=== PATIENT | female | born 1960 | race Caucasian/White ===

== ENCOUNTER 2024-02-04 12:16 | Inpatient (IN) | payer OTHER ==
[2024-02-04 13:24] VITALS: BMI 28.3
[2024-02-04] MEDS ORDERED: NICOTINE 21 MG/24 HOURS TOPICAL PATCH TD PRN (15:03)
[2024-02-04] MEDS ORDERED: LOPERAMIDE HCL 2 MG CAPSULE PO PRN (15:03)
[2024-02-04] MEDS ORDERED: NALOXONE HCL 0.4 MG/ML VIAL IM PRN (15:03)
[2024-02-04] MEDS ORDERED: IBUPROFEN 400 MG TABLET (FP) PO PRN (15:03)
[2024-02-04] MEDS ORDERED: POLYETHYLENE GLYCOL (HEALTHYLAX) 3350 17 GM PACKET PO PRN (15:03)
[2024-02-04] MEDS ORDERED: IBUPROFEN 600 MG TABLET (FP) PO PRN (15:03)
[2024-02-04] MEDS ORDERED: ACETAMINOPHEN 325 MG TABLET (FP) PO PRN (15:03)
[2024-02-04] MEDS ORDERED: NALOXONE (NARCAN) HCL 4 MG/0.1 ML SPRAY NS PRN (15:03)
[2024-02-04] MEDS ORDERED: DICYCLOMINE HCL 10 MG CAPSULE PO PRN (15:03)
[2024-02-04] MEDS ORDERED: MAGNESIUM HYDROX 2400MG/30ML ORAL SUSPENSION 30 ML CUP PO PRN (15:03)
[2024-02-04] MEDS ORDERED: NICOTINE POLACRILEX 4 MG GUM BUC PRN (15:03)
[2024-02-04] MEDS ORDERED: guaiFENesin 600 MG TABLET.ER (FP) PO PRN (15:03)
[2024-02-04] MEDS ORDERED: BENZONATATE 200 MG CAPSULE PO PRN (15:03)
[2024-02-04] MEDS ORDERED: BENZOCAINE/MENTHOL (CHLORASEPTIC ) LOZENGE MM PRN (15:03)
[2024-02-04] MEDS ORDERED: LORazepam 1 MG TABLET PO PRN (15:03)
[2024-02-04] MEDS ORDERED: LORazepam 2 MG TABLET ONE (15:24)
[2024-02-04] MEDS: LORazepam 2 MG TABLET PO ONE (15:26)
[2024-02-04] MEDS: metFORMIN HCL 500 MG TABLET (FP) PO SCH (17:42)
[2024-02-04] MEDS: CEPHALEXIN MONOHYDRATE 500 MG CAPSULE (UD) PO SCH (17:43)
[2024-02-04] MEDS: INSULIN ASPART SLIDING SCALE (NOVOLOG) 1 VIAL SQ SCH (17:45)
[2024-02-04] MEDS: LORazepam 2 MG TABLET PO SCH (18:08)
[2024-02-04] MEDS: levETIRAcetam 250 MG TABLET PO SCH (22:59)
[2024-02-04] MEDS: MELATONIN 5 MG TABLETS PO SCH (22:59)
[2024-02-04] MEDS: THIAMINE 100 MG TABLET PO SCH (22:59)
[2024-02-04] MEDS: BUDESONIDE/FORMETEROL FUMARATE 160/4.5 mcg INHALER IH SCH (23:01)
[2024-02-05] MEDS: BICTEGRAV/EMTRICIT/TENOFOV (BIKTARVY) 50-200-25 MG TABLET PO SCH (07:27)
[2024-02-05] MEDS: ALBUTEROL SO4 HFA INHALER IH PRN (10:05)
[2024-02-05] MEDS: PRENATAL VITAMINS W/ FOLIC ACID TABLET (FP) PO SCH (10:39)
[2024-02-05] MEDS: PANTOPRAZOLE 40 MG TABLET PO SCH (10:41)
[2024-02-05] MEDS: MAG HYDROX/AL HYDROX/SIMETH 30 ML UNIT-DOSE CUP PO PRN (17:15)
[2024-02-05] MEDS: CEPHALEXIN MONOHYDRATE 500 MG CAPSULE (UD) PO SCH (18:30)
[2024-02-05] MEDS: traZODone HCL 50 MG TABLET (FP) PO SCH (23:09)
[2024-02-06] MEDS: LORazepam 1 MG TABLET PO SCH (05:39)
[2024-02-06] MEDS: FLUoxetine HCL 20 MG CAPSULE PO SCH (09:51)
[2024-02-06] MEDS: ONDANSETRON *ODT* 4 MG TABLET SL PRN (09:54)
[2024-02-06] MEDS: METHOCARBAMOL 500 MG TABLET PO PRN (22:20)
[2024-02-07] MEDS: LORazepam 0.5 MG TABLET PO SCH (06:12)
[2024-02-07] MEDS: BISMUTH SUBSALICYLATE 524 MG/30 ML PO PRN (10:41)
[2024-02-07] MEDS: LORazepam 0.5 MG TABLET PO PRN (22:28)
[2024-02-08] MEDS: LORazepam 0.5 MG TABLET PO ONE (05:46)
[2024-02-08] MEDS: chlordiazePOXIDE HCL 10 MG CAPSULE PO SCH (09:45)
[2024-02-09] MEDS: chlordiazePOXIDE HCL 10 MG CAPSULE PO ONE (05:32)
[2024-02-09 06:30] VITALS: TEMP 97.1
[2024-02-09 08:54] VITALS: RESP 18
[2024-02-09 09:47] VITALS: BP 116/86; PULSE 83
[2024-02-11] MEDS ORDERED: ERGOCALCIFEROL (VIT D2) 50,000 UNIT (1.25 MG) CAPSULE PO SCH (10:00)
== END 2024-02-10 07:45 | disposition short-term general hospital (02) | DRG 775 ==
LOC: YASAS 12:16 → Y6N 15:06
PROVIDERS: ADMIT Surgery; ATTEND Surgery
PROC: HZ2ZZZZ Detoxification Services for Substance Abuse Treatment (ICD-10-PCS; principal; 2024-02-04)
DX: F10.230 Alcohol dependence with withdrawal, uncomplicated (principal); F10.24 Alcohol dependence with alcohol-induced mood disorder; F17.210 Nicotine dependence, cigarettes, uncomplicated; F31.9 Bipolar disorder, unspecified; Z21 Asymptomatic human immunodeficiency virus [HIV] infection status; R56.1 Post traumatic seizures; J44.1 Chronic obstructive pulmonary disease with (acute) exacerbation; N30.00 Acute cystitis without hematuria; E11.9 Type 2 diabetes mellitus without complications; Z79.84 Long term (current) use of oral hypoglycemic drugs; M54.50 Low back pain, unspecified; G89.29 Other chronic pain; R32 Unspecified urinary incontinence; R26.2 Difficulty in walking, not elsewhere classified; R29.6 Repeated falls; Z99.89 Dependence on other enabling machines and devices; M96.1 Postlaminectomy syndrome, not elsewhere classified
CPT/HCPCS: 80305; 82962; 93005; 93010; Q0162

== ENCOUNTER 2024-02-07 15:30 | Emergency (ER) | payer OTHER ==
[2024-02-07 15:40] VITALS: RESP 16; TEMP 98.4; BMI 28.3
[2024-02-07 16:49] LABS: BASO % 0.7 % (0-2.0); EOS % 4.1 % (0-4.5); HEMATOCRIT 40.4 % (32.4-45.2); HEMOGLOBIN 13.3 GM/dL (10.7-15.3); LYMPH % 37.3 % (8-40); MCH 30.5 pg (25.7-33.7); MCHC 32.8 g/dl (32.0-36.0); MEAN PLT VOLUME 7.6 fl (7.5-11.1); MONO % 6.7 % (3.8-10.2); NEUT % 51.2 % (42.8-82.8); PLATELET COUNT 315 10^3/uL (134-434); RBC 4.35 M/mm3 (3.60-5.2); RDW 16.7 % (11.6-15.6); WHITE BLOOD COUNT 4.8 K/mm3 (4.0-10.0)
[2024-02-07] MEDS ORDERED: ALBUTEROL SO4 2.5/IPRATROPIUM 0.5 INH SOL 3 ML VIAL.NEB. NEB ONE (16:49)
[2024-02-07] MEDS ORDERED: ACETAMINOPHEN INJECTION 100 ML ONE (16:49)
[2024-02-07] MEDS: ACETAMINOPHEN 1000 MG/100 ML BAG IVPB ONE (16:56)
[2024-02-07] MEDS: ALBUTEROL SO4 2.5/IPRATROPIUM 0.5 INH SOL 3 ML VIAL.NEB. NEB SCH (16:56)
[2024-02-07] MEDS: LACTATED RINGERS SOLUTION 1000 ML INFUS.BAG IV ONE (16:56)
[2024-02-07 17:00] LABS: VENOUS BASE EXCESS -3.9 mmol/L (-2-2); VENOUS O2 SATURATION 43.7 % (70-80); VENOUS PCO2 41.8 mmHg (38-52); VENOUS PH 7.335 (7.310-7.410)
[2024-02-07 17:07] LABS: INR 0.87 (0.83-1.09)
[2024-02-07 17:23] LABS: POTASSIUM 3.8 mmol/L (3.5-5.1)
[2024-02-07 17:26] LABS: ALBUMIN 3.5 g/dl (3.4-5.0); BLOOD UREA NITROGEN 8.9 mg/dL (7-18); CALCIUM 9.1 mg/dL (8.5-10.1); MAGNESIUM 1.9 mg/dL (1.8-2.4)
[2024-02-07 17:31] LABS: BILIRUBIN,TOTAL 0.3 mg/dL (0.2-1); TOT PROT 7.2 g/dl (6.4-8.2)
[2024-02-07 19:23] VITALS: BP 112/72; PULSE 75
== END 2024-02-07 19:26 | disposition home or self-care (01) ==
LOC: JER 15:30
PROC: 3E033NZ Introduction of Analgesics, Hypnotics, Sedatives into Peripheral Vein, Percutaneous Approach (ICD-10-PCS; principal; 2024-02-07)
PROC: 3E0F7GC Introduction of Other Therapeutic Substance into Respiratory Tract, Via Natural or Artificial Opening (ICD-10-PCS; 2024-02-07)
DX: J44.1 Chronic obstructive pulmonary disease with (acute) exacerbation (principal); R19.7 Diarrhea, unspecified; R07.2 Precordial pain; R10.13 Epigastric pain; R53.1 Weakness; F17.210 Nicotine dependence, cigarettes, uncomplicated; Z20.822 Contact with and (suspected) exposure to COVID-19
CPT/HCPCS: 0241U-QW; 36415; 71045-TC-FY; 71046-TC-FY; 80053; 82140; 82550; 82803; 83690; 83735; 84100; 84484; 85025; 85610; 85730; 86850; 86900; 86901; 99284-25; J0131

== ENCOUNTER 2024-02-09 10:12 | Inpatient (IN) | payer OTHER ==
[2024-02-09] MEDS ORDERED: ALBUTEROL SO4 2.5/IPRATROPIUM 0.5 INH SOL 3 ML VIAL.NEB. NEB ONE (10:42)
[2024-02-09] MEDS ORDERED: methylPREDNISolone NA SUCC 125 MG/2 ML VIAL ONE (10:43)
[2024-02-09] MEDS: ALBUTEROL SO4 2.5/IPRATROPIUM 0.5 INH SOL 3 ML VIAL.NEB. NEB SCH ×2 (10:45→20:41)
[2024-02-09] MEDS: methylPREDNISolone NA SUCC 125 MG/2 ML VIAL IVPB ONE (11:43)
[2024-02-09] MEDS: LACTATED RINGERS SOLUTION 1000 ML INFUS.BAG IV ONE ×2 (11:44→14:13)
[2024-02-09 11:47] LABS: BASO % 0.6 % (0-2.0); EOS % 1.6 % (0-4.5); HEMATOCRIT 43.6 % (32.4-45.2); HEMOGLOBIN 14.2 GM/dL (10.7-15.3); LYMPH % 54.3 % (8-40); MCH 30.6 pg (25.7-33.7); MCHC 32.7 g/dl (32.0-36.0); MEAN CELL VOLUME 93.6 fl (80-96); MEAN PLT VOLUME 7.5 fl (7.5-11.1); MONO % 6.4 % (3.8-10.2); NEUT % 37.1 % (42.8-82.8); PLATELET COUNT 264 10^3/uL (134-434); RBC 4.66 M/mm3 (3.60-5.2); RDW 16.6 % (11.6-15.6); WHITE BLOOD COUNT 7.3 K/mm3 (4.0-10.0)
[2024-02-09 11:54] LABS: INR 0.9 (0.83-1.09); PROTHROMBIN TIME (PATIENT) 10.4 SEC (9.7-13.0)
[2024-02-09 12:14] LABS: POTASSIUM 3.5 mmol/L (3.5-5.1)
[2024-02-09 12:16] LABS: ALBUMIN 3.9 g/dl (3.4-5.0); BLOOD UREA NITROGEN 6.1 mg/dL (7-18); CALCIUM 9.6 mg/dL (8.5-10.1)
[2024-02-09 12:21] LABS: BILIRUBIN,TOTAL 0.3 mg/dL (0.2-1); CREATININE 0.9 mg/dL (0.55-1.3); TOT PROT 7.5 g/dl (6.4-8.2)
[2024-02-09 13:00] LABS: EPI CELLS 17 /uL (0-25.1); HYALINE CASTS 1 /uL (0-3.1); PH,URINE 6.5 (5.0-8.0); URINE APPEARANCE CLEAR; URINE BACTERIA 137 /uL (0-1359); URINE BILIRUBIN NEGATIVE (NEGATIVE); URINE COLOR YELLOW; URINE GLUCOSE (UA) NEGATIVE (NEGATIVE); URINE KETONE NEGATIVE (NEGATIVE); URINE LEUK ESTERASE 1+ (NEGATIVE); URINE NITRITE NEGATIVE (NEGATIVE); URINE PROTEIN NEGATIVE (NEGATIVE); URINE UROBILINOGEN 0.2 mg/dL (0.2-1.0); URINE WBC 32 /uL (0-25.8)
[2024-02-09 13:09] LABS: URINE RBC 18 /uL (0-23.9)
[2024-02-09] MEDS ORDERED: CEFTRIAXONE 1 GM/50 ML BAG ONE (13:19)
[2024-02-09] MEDS: LORazepam 2 MG/ML SDV VIAL IVPUSH ONE (14:13)
[2024-02-09] MEDS ORDERED: ALBUTEROL SO4 2.5/IPRATROPIUM 0.5 INH SOL 3 ML VIAL.NEB. NEB PRN (16:51)
[2024-02-09] MEDS ORDERED: ALBUTEROL SO4 2.5/IPRATROPIUM 0.5 INH SOL 3 ML VIAL.NEB. NEB SCH (18:00)
[2024-02-09] MEDS: methylPREDNISolone NA SUCC 40 MG/1 ML VIAL IVPUSH SCH (19:29)
[2024-02-09] MEDS: SODIUM CHLORIDE 1,000 ML IV SCH (19:30)
[2024-02-09] MEDS: HEPARIN NA (PORCINE) 5,000 UNITS/ML 1ML VIAL SQ SCH (21:27)
[2024-02-09] MEDS: LORazepam 1 MG TABLET PO PRN (21:28)
[2024-02-09] MEDS: levETIRAcetam 500 MG TABLET (FP) PO SCH (21:30)
[2024-02-09] MEDS: traZODone HCL 50 MG TABLET (FP) PO SCH (21:30)
[2024-02-09] MEDS: INSULIN ASPART SLIDING SCALE (NOVOLOG) 1 VIAL SQ SCH (21:38)
[2024-02-09] MEDS ORDERED: BUDESONIDE/FORMETEROL FUMARATE 160/4.5 mcg INHALER IH SCH (22:00)
[2024-02-09] MEDS: BUDESONIDE/FORMETEROL FUMARATE 160/4.5 mcg INHALER IH SCH (23:03)
[2024-02-10 08:11] LABS: BASO % 0.1 % (0-2.0); HEMOGLOBIN 11.6 GM/dL (10.7-15.3); LYMPH % 10.7 % (8-40); MCH 30.6 pg (25.7-33.7); MCHC 33.1 g/dl (32.0-36.0); MEAN CELL VOLUME 92.3 fl (80-96); MEAN PLT VOLUME 7.8 fl (7.5-11.1); MONO % 2.4 % (3.8-10.2); NEUT % 86.8 % (42.8-82.8); PLATELET COUNT 250 10^3/uL (134-434); RBC 3.79 M/mm3 (3.60-5.2); RDW 16.3 % (11.6-15.6)
[2024-02-10] MEDS ORDERED: ALBUTEROL SO4 0.5 % INH SOLN 2.5 MG/0.5 ML VIAL.NEB. NEB PRN (08:27)
[2024-02-10 08:30] LABS: POTASSIUM 3.8 mmol/L (3.5-5.1)
[2024-02-10 08:36] LABS: CALCIUM 8.6 mg/dL (8.5-10.1)
[2024-02-10 08:37] LABS: BLOOD UREA NITROGEN 12.4 mg/dL (7-18); MAGNESIUM 1.6 mg/dL (1.8-2.4)
[2024-02-10 08:40] LABS: CREATININE 0.8 mg/dL (0.55-1.3); PHOSPHOROUS 3.2 mg/dL (2.5-4.9)
[2024-02-10 08:41] LABS: BILIRUBIN,TOTAL 0.2 mg/dL (0.2-1); TOT PROT 6.2 g/dl (6.4-8.2)
[2024-02-10 10:29] LABS: ARTERIAL BLOOD GAS BASE EXCESS 0.5 mmol/L (-2-2); ARTERIAL BLOOD GAS PO2 82.2 mmHg (80-100); ARTERIAL BLOOD GAS pH 7.395 (7.350-7.450)
[2024-02-10 10:34] LABS: ALLENS TEST POSITIVE
[2024-02-10] MEDS: FOLIC ACID 1 MG TABLET (FP) PO SCH (10:49)
[2024-02-10] MEDS: FLUoxetine HCL 20 MG CAPSULE PO SCH (10:49)
[2024-02-10] MEDS: CEFTRIAXONE 1 GM in DEXTROSE 5%-WATER - 50 ML IVPB SCH (10:49)
[2024-02-10] MEDS: THIAMINE 100 MG TABLET PO SCH (10:49)
[2024-02-10] MEDS: BICTEGRAV/EMTRICIT/TENOFOV (BIKTARVY) 50-200-25 MG TABLET PO SCH (10:49)
[2024-02-10] MEDS: PANTOPRAZOLE 40 MG TABLET PO SCH (10:50)
[2024-02-10] MEDS: MAGNESIUM 2GM/50ML STERILE WATER IVPB IVPB ONE (13:17)
[2024-02-10 18:30] LABS: COCAINE, UR NEGATIVE (NEGATIVE); METHADONE, UR NEGATIVE (NEGATIVE); OPIATES, URI NEGATIVE (NEGATIVE); PHENCYCLIDINE,URINE NEGATIVE (NEGATIVE)
[2024-02-10 18:34] LABS: URINE AMPHETAMINES NEGATIVE (NEGATIVE); URINE BARBITURATES POSITIVE (NEGATIVE); URINE BENZODIAZEPINES POSITIVE (NEGATIVE)
[2024-02-11] MEDS: hydrOXYzine PAMOATE 25 MG CAPSULE (FP) PO ONE (00:56)
[2024-02-11] MEDS: THIAMINE HCL 200 MG/2 ML VIAL IVPB SCH (08:47)
[2024-02-11] MEDS: predniSONE 20 MG TABLET (UD) PO SCH (10:10)
[2024-02-11 10:18] LABS: HEMATOCRIT 44.8 % (32.4-45.2); HEMOGLOBIN 15.1 GM/dL (10.7-15.3); MCH 31.1 pg (25.7-33.7); MCHC 33.6 g/dl (32.0-36.0); MEAN CELL VOLUME 92.4 fl (80-96); MEAN PLT VOLUME 8.1 fl (7.5-11.1); PLATELET COUNT 249 10^3/uL (134-434); RBC 4.85 M/mm3 (3.60-5.2); RDW 16.7 % (11.6-15.6); WHITE BLOOD COUNT 5.4 K/mm3 (4.0-10.0)
[2024-02-11 10:31] LABS: POTASSIUM 3.6 mmol/L (3.5-5.1)
[2024-02-11 10:42] LABS: ALBUMIN 3.9 g/dl (3.4-5.0); BILIRUBIN,TOTAL 0.6 mg/dL (0.2-1); PHOSPHOROUS 2.7 mg/dL (2.5-4.9); TOT PROT 8.1 g/dl (6.4-8.2)
[2024-02-11] MEDS: MEROPENEM 1 GM in DEXTROSE 5%-WATER 100 ML IVPB ONE (12:04)
[2024-02-11] MEDS: traZODone HCL 50 MG TABLET (FP) PO SCH (23:12)
[2024-02-12 10:32] LABS: HEMATOCRIT 37.3 % (32.4-45.2); HEMOGLOBIN 12.4 GM/dL (10.7-15.3); MCH 30.7 pg (25.7-33.7); MCHC 33.3 g/dl (32.0-36.0); MEAN PLT VOLUME 8.1 fl (7.5-11.1); PLATELET COUNT 242 10^3/uL (134-434); RBC 4.05 M/mm3 (3.60-5.2); RDW 16.3 % (11.6-15.6); WHITE BLOOD COUNT 5.6 K/mm3 (4.0-10.0)
[2024-02-12] MEDS: NITROFURANTOIN MONOHYD/M-CRYST 100 MG CAPSULE PO SCH (10:36)
[2024-02-12 10:49] LABS: POTASSIUM 3.6 mmol/L (3.5-5.1)
[2024-02-12 10:53] LABS: ALBUMIN 3.2 g/dl (3.4-5.0); BLOOD UREA NITROGEN 9.5 mg/dL (7-18); CALCIUM 8.9 mg/dL (8.5-10.1)
[2024-02-12 10:57] LABS: BILIRUBIN,TOTAL 0.4 mg/dL (0.2-1); CREATININE 0.9 mg/dL (0.55-1.3); PHOSPHOROUS 3.5 mg/dL (2.5-4.9); TOT PROT 6.6 g/dl (6.4-8.2)
[2024-02-12 13:58] VITALS: BMI 30.2
[2024-02-12] MEDS: methylPREDNISolone NA SUCC 40 MG/1 ML VIAL IVPUSH SCH (21:16)
[2024-02-13 09:13] LABS: HEMATOCRIT 35.2 % (32.4-45.2); HEMOGLOBIN 11.8 GM/dL (10.7-15.3); MCH 30.8 pg (25.7-33.7); MCHC 33.6 g/dl (32.0-36.0); MEAN CELL VOLUME 91.8 fl (80-96); MEAN PLT VOLUME 7.7 fl (7.5-11.1); PLATELET COUNT 271 10^3/uL (134-434); RBC 3.84 M/mm3 (3.60-5.2); RDW 15.9 % (11.6-15.6); WHITE BLOOD COUNT 8.4 K/mm3 (4.0-10.0)
[2024-02-13 09:36] LABS: POTASSIUM 3.6 mmol/L (3.5-5.1)
[2024-02-13 09:46] LABS: ALBUMIN 3.2 g/dl (3.4-5.0); BLOOD UREA NITROGEN 14.4 mg/dL (7-18); CALCIUM 9.3 mg/dL (8.5-10.1); MAGNESIUM 2.1 mg/dL (1.8-2.4)
[2024-02-13] MEDS: MULTIVITAMINS (DAILY MVI) TABLET (FP) PO SCH (09:46)
[2024-02-13 09:48] LABS: PHOSPHOROUS 2.7 mg/dL (2.5-4.9)
[2024-02-13 09:50] LABS: BILIRUBIN,TOTAL 0.2 mg/dL (0.2-1); TOT PROT 6.8 g/dl (6.4-8.2)
[2024-02-13] MEDS: THIAMINE HCL 200 MG/2 ML VIAL IVPB SCH (11:26)
[2024-02-14 09:18] LABS: HEMATOCRIT 38.4 % (32.4-45.2); HEMOGLOBIN 12.9 GM/dL (10.7-15.3); MCH 30.8 pg (25.7-33.7); MCHC 33.6 g/dl (32.0-36.0); MEAN CELL VOLUME 91.7 fl (80-96); MEAN PLT VOLUME 7.9 fl (7.5-11.1); PLATELET COUNT 294 10^3/uL (134-434); RBC 4.19 M/mm3 (3.60-5.2); RDW 16.4 % (11.6-15.6); WHITE BLOOD COUNT 9.5 K/mm3 (4.0-10.0)
[2024-02-14 09:38] LABS: POTASSIUM 3.8 mmol/L (3.5-5.1)
[2024-02-14 09:49] LABS: ALBUMIN 3.3 g/dl (3.4-5.0); BLOOD UREA NITROGEN 15.3 mg/dL (7-18); CALCIUM 9.2 mg/dL (8.5-10.1)
[2024-02-14 09:52] LABS: CREATININE 0.9 mg/dL (0.55-1.3); PHOSPHOROUS 3.9 mg/dL (2.5-4.9)
[2024-02-14 09:53] LABS: BILIRUBIN,TOTAL 0.2 mg/dL (0.2-1)
[2024-02-14 22:13] LABS: HIV INTERPRETATION PRESUMPTIVE POSITIVE (NEGATIVE)
[2024-02-15] MEDS: methylPREDNISolone NA SUCC 40 MG/1 ML VIAL IVPUSH SCH ×2 (10:04→15:54)
[2024-02-15 11:24] LABS: POTASSIUM 3.6 mmol/L (3.5-5.1)
[2024-02-15 11:37] LABS: CALCIUM 9.6 mg/dL (8.5-10.1)
[2024-02-15 11:38] LABS: ALBUMIN 3.8 g/dl (3.4-5.0); BLOOD UREA NITROGEN 15.4 mg/dL (7-18); MAGNESIUM 2.1 mg/dL (1.8-2.4)
[2024-02-15 11:41] LABS: PHOSPHOROUS 3.4 mg/dL (2.5-4.9)
[2024-02-15 11:42] LABS: BILIRUBIN,TOTAL 0.4 mg/dL (0.2-1); TOT PROT 7.9 g/dl (6.4-8.2)
[2024-02-15 11:46] LABS: HEMATOCRIT 44.4 % (32.4-45.2); HEMOGLOBIN 14.6 GM/dL (10.7-15.3); MCH 30.7 pg (25.7-33.7); MCHC 32.8 g/dl (32.0-36.0); MEAN CELL VOLUME 93.7 fl (80-96); RBC 4.74 M/mm3 (3.60-5.2); RDW 16.3 % (11.6-15.6)
[2024-02-15 11:47] LABS: WHITE BLOOD COUNT 10.4 K/mm3 (4.0-10.0)
[2024-02-16 08:37] LABS: HEMOGLOBIN 12.8 GM/dL (10.7-15.3); MCH 30.4 pg (25.7-33.7); MCHC 32.7 g/dl (32.0-36.0); MEAN CELL VOLUME 93.1 fl (80-96); MEAN PLT VOLUME 7.9 fl (7.5-11.1); PLATELET COUNT 296 10^3/uL (134-434); RBC 4.19 M/mm3 (3.60-5.2); WHITE BLOOD COUNT 10.7 K/mm3 (4.0-10.0)
[2024-02-16 09:05] LABS: POTASSIUM 4.5 mmol/L (3.5-5.1)
[2024-02-16 09:07] LABS: ALBUMIN 3.3 g/dl (3.4-5.0); CALCIUM 9.5 mg/dL (8.5-10.1)
[2024-02-16 09:10] LABS: CREATININE 0.9 mg/dL (0.55-1.3)
[2024-02-16 09:11] LABS: PHOSPHOROUS 3.6 mg/dL (2.5-4.9)
[2024-02-16 09:12] LABS: BILIRUBIN,TOTAL 0.3 mg/dL (0.2-1); TOT PROT 7.1 g/dl (6.4-8.2)
[2024-02-16] MEDS ORDERED: predniSONE 20 MG TABLET (UD) PO SCH (10:00)
[2024-02-16] MEDS: PENICILLIN G BENZATHINE 2,400,000 UNIT/4 ML PFS IM ONE (14:34)
[2024-02-16] MEDS: methylPREDNISolone NA SUCC 40 MG/1 ML VIAL IVPUSH SCH (21:49)
[2024-02-17] MEDS: SOLIFENACIN SUCCINATE 5 MG TAB PO SCH (09:28)
[2024-02-17 10:26] LABS: HEMATOCRIT 40.3 % (32.4-45.2); HEMOGLOBIN 13.3 GM/dL (10.7-15.3); MCH 30.3 pg (25.7-33.7); MEAN PLT VOLUME 8.3 fl (7.5-11.1); PLATELET COUNT 265 10^3/uL (134-434); RBC 4.38 M/mm3 (3.60-5.2); RDW 16.1 % (11.6-15.6); WHITE BLOOD COUNT 14.8 K/mm3 (4.0-10.0)
[2024-02-17 10:52] LABS: POTASSIUM 4.1 mmol/L (3.5-5.1)
[2024-02-17 10:57] LABS: CALCIUM 10.2 mg/dL (8.5-10.1)
[2024-02-17 10:58] LABS: ALBUMIN 3.8 g/dl (3.4-5.0); BLOOD UREA NITROGEN 19.5 mg/dL (7-18); MAGNESIUM 2.3 mg/dL (1.8-2.4)
[2024-02-17 11:01] LABS: CREATININE 0.9 mg/dL (0.55-1.3)
[2024-02-17 11:02] LABS: BILIRUBIN,TOTAL 0.6 mg/dL (0.2-1); PHOSPHOROUS 4.2 mg/dL (2.5-4.9)
[2024-02-17 11:03] LABS: TOT PROT 7.9 g/dl (6.4-8.2)
[2024-02-17] MEDS: POLYETHYLENE GLYCOL (HEALTHYLAX) 3350 17 GM PACKET PO SCH (11:59)
[2024-02-18] MEDS: THIAMINE 100 MG TABLET PO SCH (09:52)
[2024-02-18] MEDS: guaiFENesin/D-METHORPHAN HB 10 ML UNIT-DOSE CUPS PO PRN (21:20)
[2024-02-19 08:46] LABS: HEMATOCRIT 37.5 % (32.4-45.2); HEMOGLOBIN 12.4 GM/dL (10.7-15.3); MCH 30.2 pg (25.7-33.7); MCHC 33.1 g/dl (32.0-36.0); MEAN CELL VOLUME 91.2 fl (80-96); MEAN PLT VOLUME 8.1 fl (7.5-11.1); PLATELET COUNT 313 10^3/uL (134-434); RBC 4.12 M/mm3 (3.60-5.2); RDW 16.4 % (11.6-15.6); WHITE BLOOD COUNT 11.1 K/mm3 (4.0-10.0)
[2024-02-19 09:07] LABS: POTASSIUM 3.6 mmol/L (3.5-5.1)
[2024-02-19 09:18] LABS: CALCIUM 8.9 mg/dL (8.5-10.1)
[2024-02-19 09:20] LABS: BILIRUBIN,TOTAL 0.3 mg/dL (0.2-1); TOT PROT 6.6 g/dl (6.4-8.2)
[2024-02-19 09:22] LABS: CREATININE 0.9 mg/dL (0.55-1.3)
[2024-02-19 10:23] LABS: ANISOCYTOSIS 0; MACROCYTOSIS 0
[2024-02-19 10:24] LABS: PLATELET ESTIMATE ADEQUATE
[2024-02-19] MEDS: predniSONE 20 MG TABLET (UD) PO SCH (10:26)
[2024-02-20] MEDS: SENNOSIDES 8.8 MG/5 ML SYRUP PO ONE (15:03)
[2024-02-22 03:40] VITALS: RESP 18
[2024-02-22 08:20] VITALS: BP 115/77; PULSE 72; TEMP 97.8
== END 2024-02-22 09:50 | DRG 140 ==
LOC: JER 10:12 → JERBED 14:30 → J6S 17:49 → OBSVTOIN 02-10 10:18 → J6S 02-11 09:36
PROVIDERS: ADMIT Internal Medicine; ATTEND Internal Medicine
DX: J44.1 Chronic obstructive pulmonary disease with (acute) exacerbation (principal); G20.A1 Parkinson's disease without dyskinesia, without mention of fluctuations; K21.9 Gastro-esophageal reflux disease without esophagitis; E51.2 Wernicke's encephalopathy; F31.9 Bipolar disorder, unspecified; E11.9 Type 2 diabetes mellitus without complications; F10.230 Alcohol dependence with withdrawal, uncomplicated; Z87.820 Personal history of traumatic brain injury; N39.0 Urinary tract infection, site not specified; J98.11 Atelectasis; G40.909 Epilepsy, unspecified, not intractable, without status epilepticus; Z21 Asymptomatic human immunodeficiency virus [HIV] infection status; A53.9 Syphilis, unspecified; B96.20 Unspecified Escherichia coli [E. coli] as the cause of diseases classified elsewhere
CPT/HCPCS: 0241U-QW; 36415; 36600; 70450-TC; 70551-TC; 71045-TC-FY; 80053; 80307; 81003; 82140; 82607; 82746; 82803; 82962; 83036; 83735; 84100; 84443; 84484; 85025; 85027; 85610; 85730; 86359; 86360; 86593; 86704; 86780; 86803; 87086; 87186; 87350; 87389; 87517; 93005; 93010; 94640; 94761; 97116-GP; 97162-GP; 99285-25; G0378; J1644

== ENCOUNTER 2024-12-03 16:24 | Inpatient (IN) | payer OTHER ==
[2024-12-03 17:40] VITALS: BMI 27.6
[2024-12-03] MEDS ORDERED: MAGNESIUM HYDROX 2400MG/30ML ORAL SUSPENSION 30 ML CUP PO PRN (19:26)
[2024-12-03] MEDS ORDERED: NALOXONE (NARCAN) HCL 4 MG/0.1 ML SPRAY NS PRN (19:26)
[2024-12-03] MEDS ORDERED: BENZONATATE 200 MG CAPSULE PO PRN (19:26)
[2024-12-03] MEDS ORDERED: guaiFENesin 600 MG TABLET.ER (FP) PO PRN (19:26)
[2024-12-03] MEDS ORDERED: IBUPROFEN 400 MG TABLET (FP) PO PRN (19:26)
[2024-12-03] MEDS ORDERED: MAG HYDROX/AL HYDROX/SIMETH 30 ML UNIT-DOSE CUP PO PRN (19:26)
[2024-12-03] MEDS ORDERED: POLYETHYLENE GLYCOL (HEALTHYLAX) 3350 17 GM PACKET PO PRN (19:26)
[2024-12-03] MEDS ORDERED: BENZOCAINE/MENTHOL (CHLORASEPTIC ) LOZENGE MM PRN (19:26)
[2024-12-03] MEDS ORDERED: LOPERAMIDE HCL 2 MG CAPSULE PO PRN (19:26)
[2024-12-03] MEDS ORDERED: NICOTINE POLACRILEX 2 MG LOZENGE BC PRN (19:26)
[2024-12-03] MEDS ORDERED: levETIRAcetam 500 MG TABLET (FP) PO ONE ×2 (22:11→22:16)
[2024-12-03] MEDS ORDERED: MELATONIN 5 MG TABLETS ONE (22:11)
[2024-12-03] MEDS ORDERED: IBUPROFEN 600 MG TABLET (FP) PO ONE (22:12)
[2024-12-03] MEDS: IBUPROFEN 600 MG TABLET (FP) PO PRN (22:13)
[2024-12-03] MEDS: THIAMINE 100 MG TABLET PO SCH (22:13)
[2024-12-03] MEDS: MELATONIN 5 MG TABLETS PO SCH (22:13)
[2024-12-03] MEDS ORDERED: guaiFENesin/D-METHORPHAN HB 10 ML UNIT-DOSE CUPS PO PRN (22:14)
[2024-12-03] MEDS ORDERED: ALBUTEROL SO4 HFA INHALER IH PRN (22:14)
[2024-12-03] MEDS: levETIRAcetam 500 MG TABLET (FP) PO SCH (22:17)
[2024-12-03] MEDS: BUDESONIDE/FORMETEROL FUMARATE 160/4.5 mcg INHALER IH SCH (22:59)
[2024-12-03] MEDS: GABAPENTIN 300 MG CAPSULE PO SCH (23:00)
[2024-12-04] MEDS: BICTEGRAV/EMTRICIT/TENOFOV (BIKTARVY) 50-200-25 MG TABLET PO SCH (07:46)
[2024-12-04] MEDS: FOLIC ACID 1 MG TABLET (FP) PO SCH (11:00)
[2024-12-04] MEDS: PRENATAL VITAMINS W/ FOLIC ACID TABLET (FP) PO SCH (11:00)
[2024-12-04 13:21] LABS: CO2 26.0 mmol/L (21-32)
[2024-12-04 13:22] LABS: GLUCOSE,RANDOM 108.0 mg/dL (74-106)
[2024-12-04 13:24] LABS: CREATININE 1.3 mg/dL (0.55-1.3)
[2024-12-04 13:25] LABS: SGOT/AST 20.0 U/L (15-37)
[2024-12-04 13:27] LABS: ALK PHOS 82.0 U/L (45-117); TOT PROT 6.7 g/dl (6.4-8.2)
[2024-12-04 13:36] LABS: SGPT/ALT 25.0 U/L (13-61)
[2024-12-04] MEDS: ACETAMINOPHEN 325 MG TABLET (FP) PO PRN (13:54)
[2024-12-04 14:40] LABS: EPI CELLS 11 /uL (0-25.1); HYALINE CASTS 0 /uL (0-3.1); URINE APPEARANCE CLEAR; URINE BACTERIA 20 /uL (0-1359); URINE BILIRUBIN NEGATIVE (NEGATIVE); URINE COLOR YELLOW; URINE GLUCOSE (UA) NEGATIVE (NEGATIVE); URINE KETONE NEGATIVE (NEGATIVE); URINE LEUK ESTERASE TRACE (NEGATIVE); URINE NITRITE NEGATIVE (NEGATIVE); URINE PROTEIN NEGATIVE (NEGATIVE); URINE RBC 34 /uL (0-23.9); URINE UROBILINOGEN 0.2 mg/dL (0.2-1.0); URINE WBC 15 /uL (0-25.8)
[2024-12-04] MEDS: hydrOXYzine PAMOATE 25 MG CAPSULE (FP) PO PRN (17:20)
[2024-12-04] MEDS: METHOCARBAMOL 500 MG TABLET PO PRN (23:03)
[2024-12-05] MEDS: traZODone HCL 50 MG TABLET (FP) PO SCH (21:02)
[2024-12-06] MEDS: NICOTINE POLACRILEX 2 MG GUM BUC PRN (19:15)
[2024-12-07] MEDS ORDERED: guaiFENesin 200 MG/10 ML 10 ML UNIT-DOSE CUPS PO PRN (13:33)
[2024-12-07] MEDS: NICOTINE 14 MG/24 HOURS TOPICAL PATCH TD SCH (14:27)
[2024-12-07] MEDS: GABAPENTIN 300 MG CAPSULE PO SCH (14:27)
[2024-12-07] MEDS: LIDOCAINE 5% TOPICAL PATCH TP SCH (14:28)
[2024-12-07] MEDS: METHOCARBAMOL 750 MG TABLET PO PRN (19:15)
[2024-12-07] MEDS: LIDOCAINE PATCH REMOVAL MC SCH (21:21)
[2024-12-08] MEDS: DISULFIRAM 250 MG TABLET PO SCH (10:06)
[2024-12-08] MEDS: traZODone HCL 50 MG TABLET (FP) PO SCH (21:16)
[2024-12-09] MEDS: PANTOPRAZOLE 40 MG TABLET PO PRN (14:43)
[2024-12-10] MEDS: NICOTINE POLACRILEX 2 MG GUM BUC PRN (10:08)
[2024-12-11] MEDS: BICTEGRAV/EMTRICIT/TENOFOV (BIKTARVY) 50-200-25 MG TABLET PO SCH (06:25)
[2024-12-11] MEDS: PANTOPRAZOLE 40 MG TABLET PO SCH (06:25)
[2024-12-12] MEDS: MAGNESIUM OXIDE 400 MG TABLET (FP) PO SCH (12:15)
[2024-12-12] MEDS: ACETAMINOPHEN 325 MG TABLET (FP) PO PRN (16:30)
[2024-12-12] MEDS: metFORMIN HCL 500 MG TABLET (FP) PO SCH (16:43)
[2024-12-17 07:57] VITALS: BP 109/79; PULSE 89; RESP 16; TEMP 97.6
== END 2024-12-17 11:20 | disposition home or self-care (01) | DRG 772 ==
LOC: YASAS 16:24 → Y3NR 21:53 → Y3N 12-04 17:52 → Y3NR 12-04 17:55 → Y5N 12-05 11:12
PROVIDERS: ADMIT Psychiatry & Neurology Pain Medicine; ATTEND Psychiatry & Neurology Pain Medicine
PROC: HZ42ZZZ Group Counseling for Substance Abuse Treatment, Cognitive-Behavioral (ICD-10-PCS; principal; 2024-12-03)
DX: F10.20 Alcohol dependence, uncomplicated (principal); Z21 Asymptomatic human immunodeficiency virus [HIV] infection status; G40.909 Epilepsy, unspecified, not intractable, without status epilepticus; J44.9 Chronic obstructive pulmonary disease, unspecified; G62.9 Polyneuropathy, unspecified; K21.9 Gastro-esophageal reflux disease without esophagitis; M54.50 Low back pain, unspecified; F17.210 Nicotine dependence, cigarettes, uncomplicated; F31.81 Bipolar II disorder; E78.5 Hyperlipidemia, unspecified; F43.10 Post-traumatic stress disorder, unspecified; E11.22 Type 2 diabetes mellitus with diabetic chronic kidney disease; N18.9 Chronic kidney disease, unspecified
CPT/HCPCS: 36415; 80053; 80305; 80307; 81003; 82962; 86593; 86780; 87811